=== PATIENT | male | born 1965 ===

== ENCOUNTER 2019-11-11 14:22 | Emergency (ER) | payer SELFPAY ==
[2019-11-11 15:34] LABS: Hematocrit 47.5 % (35.5-45.6); Hemoglobin 16.7 gm/dl (11.8-15.2); Mean Corpuscular HGB Conc 35 % (32-34); Mean Corpuscular Volume 91 fl (84-94); Platelet Count 319 K/mm3 (140-440); Red Blood Count 5.21 M/mm3 (3.65-5.03); Red Cell Distribution Width 14.1 % (13.2-15.2)
[2019-11-11 15:40] LABS: BUN/Creatinine Ratio 6; Blood Urea Nitrogen 7 mg/dL (9-20); Calcium 9.7 mg/dL (8.4-10.2); Hemolysis Index 11
[2019-11-11] MEDS ORDERED: SODIUM CHLORIDE 0.9% 1000 ML 1,000 ML IV ONE (20:15)
[2019-11-11] MEDS ORDERED: dexAMETHasone 20 MG/5 ML VIAL IV ONE (20:15)
[2019-11-11] MEDS ORDERED: IPRATROPIUM 0.02% NEBU 2.5 ML IH ONE (20:15)
[2019-11-11] MEDS ORDERED: MORPHINE 4 MG/1 ML INJ IV ONE (20:15)
[2019-11-11] MEDS ORDERED: ONDANSETRON 4 MG/2 ML INJ IV ONE (20:15)
[2019-11-11] MEDS ORDERED: ALBUTEROL 2.5 MG/3 ML NEBU IH ONE (20:15)
--- NOTE | 2019-11-11 20:45 | Emergency Department Report ---
<LUPE MENDIOLA - Last Filed: 11/12/19 01:32> ED General Adult HPI - General Chief complaint: Abdominal Pain Stated complaint: BLOOD IN STOOL Time Seen by Provider: 11/11/19 17:06 - Related Data Previous Rx's Medication Instructions Recorded Last Taken Type Ciprofloxacin HCl [Ciprofloxacin 500 mg PO Q12HR #20 tab 11/12/19 Unknown Rx TAB] Hyoscyamine Subl [Levsin Sl 0.125 0.125 mg SL Q6HR #14 tab 11/12/19 Unknown Rx TAB] Ondansetron [Zofran Odt] 4 mg PO Q8HR #20 tab.rapdis 11/12/19 Unknown Rx metroNIDAZOLE [Flagyl] 500 mg PO Q12HR #20 tab 11/12/19 Unknown Rx Allergies Allergy/AdvReac Type Severity Reaction Status Date / Time No Known Allergies Allergy Unverified 11/11/19 14:43 ED Past Medical Hx - Medications Home Medications: Home Medications Medication Instructions Recorded Confirmed Last Taken Type Ciprofloxacin HCl [Ciprofloxacin 500 mg PO Q12HR #20 tab 11/12/19 Unknown Rx TAB] Hyoscyamine Subl [Levsin Sl 0.125 0.125 mg SL Q6HR #14 tab 11/12/19 Unknown Rx TAB] Ondansetron [Zofran Odt] 4 mg PO Q8HR #20 tab.rapdis 11/12/19 Unknown Rx metroNIDAZOLE [Flagyl] 500 mg PO Q12HR #20 tab 11/12/19 Unknown Rx ED Medical Decision Making - Lab Data Result diagrams: 11/11/19 14:50 11/11/19 14:50 - Radiology Data Referring Physician:TYRONE DALYPatient Name:DEA ESQUEDAPatient ID:[id number] of :[id number]:MaleAccession:[id number] Date:[id number] Status:Finalized Findings [facility] [address] [place] [address] Cat Scan Report Signed Patient: DEA ESQUEDA MR #: [id number] : 1965 Acct:[id number] Age/Sex: 54 / M ADM Date: 11/11/19 Loc: ED Attending Dr: Ordering Physician: NAEEM RALPH Date of Service: 11/11/19 Procedure(s): CT abdomen pelvis w con Accession Number(s): [id number] cc: NAEEM RALPH CT abdomen pelvis w con INDICATION: abd pain, diarrhea, blood in stool. TECHNIQUE: All CT scans at this location are performed using the following dose modulation technique: Automated exposure control. CONTRAST: Omnipaque 300, 100 cc IV injection. COMPARISON: None available. CT ABDOMEN: The parenchymal organs are unremarkable in appearance. Negative for abdominal mass, fluid collection or adenopathy. Moderate thickening is present at the distal ileum and terminal ileal region. The colon is not thickened but demonstrates prominent subcutaneous fat. CT PELVIS: The appendix is normal. Negative for pelvic mass or fluid collection. Small amount of pelvic free fluid. The prostate is enlarged and contains mild calcification. Mild symmetric bladder wall thickening is present. IMPRESSION: 1. Thickening localized at the distal/terminal ileal region worrisome for Crohn's disease. If the patient has only acute systems, similar findings can be seen with infection. 2. Mild free fluid. 3. Mild prostate enlargement with element of bladder outlet obstruction. Signer Name: Jorge Albarado MD Signed: 11/12/2019 12:52 AM Workstation Name: [id number] Transcribed By: ES Dictated By: Jorge Albarado MD Electronically Authenticated By: Jorge Albarado MD Signed Date/Time: 11/12/1950 DD/ TD/TT: ED Disposition Clinical Impression: Abdominal pain Disposition: DC-01 TO HOME OR SELFCARE Is pt being admited?: No Does the pt Need Aspirin: No Condition: Stable Instructions: Crohn Disease (ED), Acute Abdominal Pain (ED), Abdominal Pain ( ED) Prescriptions: Ciprofloxacin HCl [Ciprofloxacin TAB] 500 mg PO Q12HR #20 tab metroNIDAZOLE [Flagyl] 500 mg PO Q12HR #20 tab Hyoscyamine Subl [Levsin Sl 0.125 TAB] 0.125 mg SL Q6HR #14 tab Ondansetron [Zofran Odt] 4 mg PO Q8HR #20 tab.rapdis Referrals: PRIMARY CAREMD [Primary Care Provider] - 3-5 Days [facility] [Provider Group] - 3-5 Days Forms: Work/School Release Form(ED) <TYRONE DALY - Last Filed: 11/14/19 16:43> ED General Adult HPI - General Source: patient Mode of arrival: Ambulatory Limitations: No Limitations - History of Present Illness Initial comments: Patient is a 38-year-old male presents emergency room with complaints of generalized abdominal pain that began 3 days ago. Patient states that his abdomen feels bloated. He states that he has been having frequent diarrhea. Patient states that he has been having blood in the stool and that sometimes when he goes to the bathroom there is only blood present. He denies any pus in the stool. He denies any fever or vomiting. He states he did travel to [place] a couple weeks ago. He denies any sick contacts. He denies ever having this in the past. No past medical history. No allergies to medications. He denies any drug use or IV drug use. He is a smoker. He endorses heavy alcohol use, he states he drinks half a pint every day. ED Review of Systems ROS: Stated complaint: BLOOD IN STOOL Other details as noted in HPI Comment: All other systems reviewed and negative ED Past Medical Hx - Surgical History Past Surgical History?: No - Social History Smoking Status: Current Every Day Smoker Substance Use Type: Alcohol ED Physical Exam - General Limitations: No Limitations General appearance: alert, in no apparent distress - Head Head exam: Present: atraumatic, normocephalic - Eye Eye exam: Present: normal appearance - ENT ENT exam: Present: mucous membranes moist - Respiratory Respiratory exam: Present: wheezes (expiratory ), prolonged expiratory. Absent: respiratory distress, rales, rhonchi, stridor, chest wall tenderness, accessory muscle use - Cardiovascular Cardiovascular Exam: Present: regular rate, normal rhythm, normal heart sounds. Absent: systolic murmur, diastolic murmur, rubs, gallop - GI/Abdominal GI/Abdominal exam: Present: soft, distended, tenderness (generalized), normal johan wel sounds. Absent: guarding, rebound, rigid - Rectal Rectal exam: Present: normal rectal tone, heme (+) stool, other (development vice president: clayton, tech, brown stool present, no gross blood, no internal or external hemorrhoids, hemocult is grossly positive for blood). Absent: hemorrhoids - Neurological Exam Neurological exam: Present: alert, oriented X3 - Psychiatric Psychiatric exam: Present: normal affect, normal mood - Skin Skin exam: Present: warm, dry, intact ED Course Vital Signs 11/11/19 11/11/19 11/12/19 14:42 20:49 01:56 Temperature 97.9 F 98.7 F Pulse Rate 104 H 90 Pulse Rate [ 98 H Bilateral Throughout] Respiratory 16 18 Rate Respiratory 20 Rate [Bilateral Throughout] Blood Pressure 163/116 Blood Pressure 147/82 [Left] O2 Sat by Pulse 97 99 Oximetry ED Medical Decision Making - Lab Data Result diagrams: 11/11/19 14:50 11/11/19 14:50 Lab Results 11/11/19 11/11/19 11/11/19 Range/Units 14:50 14:50 14:50 WBC 8.7 (4.5-11.0) K/mm3 RBC 5.21 H (3.65-5.03) M/mm3 Hgb 16.7 H (11.8-15.2) gm/dl Hct 47.5 H (35.5-45.6) % MCV 91 (84-94) fl MCH 32 (28-32) pg MCHC 35 H (32-34) % RDW 14.1 (13.2-15.2) % Plt Count 319 (140-440) K/mm3 PT (12.2-14.9) Sec. INR (0.87-1.13) APTT (24.2-36.6) Sec. Sodium 138 (137-145) mmol/L Potassium 3.6 (3.6-5.0) mmol/L Chloride 100.4 (98-107) mmol/L Carbon Dioxide 21 L (22-30) mmol/L Anion Gap 20 mmol/L BUN 7 L (9-20) mg/dL Creatinine 1.2 (0.8-1.3) mg/dL Estimated GFR > 60 ml/min BUN/Creatinine Ratio 6 % Glucose 102 H (75-100) mg/dL Calcium 9.7 (8.4-10.2) mg/dL Total Bilirubin (0.1-1.2) mg/dL Direct Bilirubin (0-0.2) mg/dL Indirect Bilirubin mg/dL AST (5-40) units/L ALT (7-56) units/L Alkaline Phosphatase (35-129) units/L Total Protein (6.3-8.2) g/dL Albumin (3.9-5) g/dL Albumin/Globulin Ratio % Lipase (13-60) units/L Blood Type O POSITIVE Antibody Screen Negative 11/11/19 11/11/19 Range/Units 20:22 20:22 WBC (4.5-11.0) K/mm3 RBC (3.65-5.03) M/mm3 Hgb (11.8-15.2) gm/dl Hct (35.5-45.6) % MCV (84-94) fl MCH (28-32) pg MCHC (32-34) % RDW (13.2-15.2) % Plt Count (140-440) K/mm3 PT 13.0 (12.2-14.9) Sec. INR 0.97 (0.87-1.13) APTT 37.0 H (24.2-36.6) Sec. Sodium (137-145) mmol/L Potassium (3.6-5.0) mmol/L Chloride (98-107) mmol/L Carbon Dioxide (22-30) mmol/L Anion Gap mmol/L BUN (9-20) mg/dL Creatinine (0.8-1.3) mg/dL Estimated GFR ml/min BUN/Creatinine Ratio % Glucose (75-100) mg/dL Calcium (8.4-10.2) mg/dL Total Bilirubin 0.20 (0.1-1.2) mg/dL Direct Bilirubin < 0.2 (0-0.2) mg/dL Indirect Bilirubin 0.0 mg/dL AST 28 (5-40) units/L ALT 28 (7-56) units/L Alkaline Phosphatase 102 (35-129) units/L Total Protein 7.2 (6.3-8.2) g/dL Albumin 4.3 (3.9-5) g/dL Albumin/Globulin Ratio 1.5 % Lipase 26 (13-60) units/L Blood Type Antibody Screen - Radiology Data Radiology results: report reviewed - Medical Decision Making Patient is a 38-year-old male presents emergency room with complaints of generalized abdominal pain that began 3 days ago. Patient states that his abdomen feels bloated. He states that he has been having frequent diarrhea. Patient states that he has been having blood in the stool and that sometimes when he goes to the bathroom there is only blood present. He denies any pus in the stool. He denies any fever or vomiting. He states he did travel to [place] a couple weeks ago. He denies any sick contacts. He denies ever having th is in the past. No past medical history. No allergies to medications. He denies any drug use or IV drug use. He is a smoker. He endorses heavy alcohol use, he states he drinks half a pint every day. initial vitals with tachycardia and elevated BP which improved upon repeat. On exam patient has generalized abdominal tenderness to palpation, no guarding, no rebound, no rigidity, normal bowel sounds, incidental finding of bilateral expiratory wheezing and prolonged expiratory phase, no respiratory distress, no accessory muscle use, no stridor, rectal exam development vice president: clayton, tech, brown stool present, no gross blood, no internal or external hemorrhoids, hemocult is grossly positive for blood. labs are stable. CT abd pelvis with IV contrast ordered to r/o intraabdominal pathology. s/o to Lupe Mendiola PA-C pending CT abd pelvis and reexamination for resolution of wheezing, please see his note - Differential Diagnosis mass, hemorrhoids, diverticulosis, diverticulitis, IBD, colitis, GI bleed Critical care attestation.: If time is entered above; I have spent that time in minutes in the direct care of this critically ill patient, excluding procedure time.
[2019-11-11 21:37] LABS: INR 0.97 (0.87-1.13)
[2019-11-11 21:46] LABS: Alanine Aminotransferase 28 units/L (7-56); Albumin 4.3 g/dL (3.9-5)
[2019-11-11 21:52] LABS: Bilirubin,Direct < 0.2 mg/dL (0-0.2)
--- NOTE | 2019-11-12 00:56 | Cat Scan Report ---
CT abdomen pelvis w con INDICATION: abd pain, diarrhea, blood in stool. TECHNIQUE: All CT scans at this location are performed using the following dose modulation technique: Automated exposure control. CONTRAST: Omnipaque 300, 100 cc IV injection. COMPARISON: None available. CT ABDOMEN: The parenchymal organs are unremarkable in appearance. Negative for abdominal mass, fluid collection or adenopathy. Moderate thickening is present at the distal ileum and terminal ileal vicente on. The colon is not thickened but demonstrates prominent subcutaneous fat. CT PELVIS: The appendix is normal. Negative for pelvic mass or fluid collection. Small amount of pelv ic free fluid. The prostate is enlarged and contains mild calcification. Mild symmetric bladder wall thickening is p resent. IMPRESSION: 1. Thickening localized at the distal/terminal ileal region worrisome for Crohn's disease. If the pat ient has only acute systems, similar findings can be seen with infection. 2. Mild free fluid. 3. Mild prostate enlargement with element of bladder outlet obstruction. Signer Name: Jorge Albarado MD Signed: 11/12/2019 12:52 AM Workstation Name: [id number]
[2019-11-12 01:57] VITALS: BP 147/82
== END 2019-11-12 01:56 | disposition home or self-care (01) ==
LOC: ED 14:22
DX: R10.84 Generalized abdominal pain (principal); F17.200 Nicotine dependence, unspecified, uncomplicated; Z79.899 Other long term (current) drug therapy
CPT/HCPCS: 36415; 74177; 80048; 80076; 82271; 83690; 85027; 85610; 85730; 86850; 86900; 86901; 94640; 96361; 96374; 96375; 99284; J1100; J2270; J2405; J7030; Q9967; 94644